=== PATIENT | female | born 1985 | race Two or more races ===

== ENCOUNTER 2018-01-02 10:29 | Emergency (ER) | payer OTHER ==
[~2018-01-02] VITALS: Ht 175.3 cm; Wt 88.5 kg
[~2018-01-02 10:29] MED LIST: ADVAIR 100-501 EACH; LOTREL 5-20 MG1 CAP; NEURONTIN300 MG; SYNTHROID50 MCG
[2018-01-02] MEDS ORDERED: AVAPRO150 MG (10:40)
== END 2018-01-02 11:31 | disposition home or self-care (01) ==
LOC: ER 10:29
DX: M62.838 Other muscle spasm (principal); M54.89 Other dorsalgia

== ENCOUNTER 2023-03-11 09:10 | Day surgery (SDC) | payer OTHER ==
[~2023-03-11 09:10] MED LIST changes: +AVAPRO150 MG; +LABETALOL HCL100 MG PO
== END 2023-03-11 17:20 | disposition home or self-care (01) ==
LOC: CIR.AMB 09:10
PROVIDERS: ATTEND Student in an Organized Health Care Education/Training Program
DX: O02.1 Missed abortion (principal); O72.2 Delayed and secondary postpartum hemorrhage; Z20.822 Contact with and (suspected) exposure to COVID-19

== ENCOUNTER 2023-10-09 11:42 | Emergency (ER) | payer OTHER ==
[~2023-10-09] VITALS: Ht 175.3 cm; Wt 94.3 kg
[2023-10-09] MEDS ORDERED: hydrOXYzine PAMOATE 50 MG CAPSULE PO STA (15:05)
== END 2023-10-09 15:38 | disposition home or self-care (01) ==
LOC: ER 11:42
DX: F41.9 Anxiety disorder, unspecified (principal); I10 Essential (primary) hypertension

== ENCOUNTER → 2024-04-25 14:45 | Outpatient (CLI) | payer OTHER | END | disposition home or self-care (01) | LOC: PRENATAL 14:45 | PROVIDERS: ATTEND Obstetrics & Gynecology Maternal & Fetal Medicine | DX: O09.529 Supervision of elderly multigravida, unspecified trimester (principal); O10.019 Pre-existing essential hypertension complicating pregnancy, unspecified trimester; Z36.82 Encounter for antenatal screening for nuchal translucency; Z36.0 Encounter for antenatal screening for chromosomal anomalies; Z3A.12 12 weeks gestation of pregnancy ==

== ENCOUNTER → 2024-06-19 08:10 | Outpatient (CLI) | payer OTHER | END | disposition home or self-care (01) | LOC: PRENATAL 08:10 | PROVIDERS: ATTEND Obstetrics & Gynecology Maternal & Fetal Medicine | DX: O44.00 Complete placenta previa NOS or without hemorrhage, unspecified trimester (principal); O09.529 Supervision of elderly multigravida, unspecified trimester; O10.019 Pre-existing essential hypertension complicating pregnancy, unspecified trimester; Z14.8 Genetic carrier of other disease; Z3A.20 20 weeks gestation of pregnancy ==

== ENCOUNTER → 2024-08-16 13:28 | Outpatient (CLI) | payer OTHER | END | disposition home or self-care (01) | LOC: PRENATAL 13:28 | PROVIDERS: ATTEND Obstetrics & Gynecology Maternal & Fetal Medicine | DX: O26.849 Uterine size-date discrepancy, unspecified trimester (principal); O09.529 Supervision of elderly multigravida, unspecified trimester; O10.019 Pre-existing essential hypertension complicating pregnancy, unspecified trimester; Z14.8 Genetic carrier of other disease; Z3A.29 29 weeks gestation of pregnancy ==

== ENCOUNTER → 2024-09-26 10:09 | Outpatient (CLI) | payer OTHER | END | disposition home or self-care (01) | LOC: PRENATAL 10:09 | PROVIDERS: ATTEND Obstetrics & Gynecology Maternal & Fetal Medicine | DX: O26.849 Uterine size-date discrepancy, unspecified trimester (principal); O36.8199 Decreased fetal movements, unspecified trimester, other fetus; O09.529 Supervision of elderly multigravida, unspecified trimester; O10.019 Pre-existing essential hypertension complicating pregnancy, unspecified trimester; Z14.8 Genetic carrier of other disease; Z3A.35 35 weeks gestation of pregnancy ==

== ENCOUNTER 2024-10-31 06:40 | Inpatient (IN) | payer OTHER ==
[~2024-10-31] VITALS: Ht 175.3 cm; Wt 3.6 kg
[2024-10-31 07:04] VITALS: BP 137/78
[2024-10-31] MEDS ORDERED: LABETALOL HCL200 MG (07:32)
[2024-10-31] MEDS ORDERED: ECOTRIN81 MG PO (07:33)
[2024-10-31] MEDS ORDERED: PRENATAL + DHA1 EAC1 PO (07:34)
[2024-10-31 07:35] VITALS: BP 137/78
[2024-10-31 08:41] LABS: HEMATOCRIT 34.5 % (36.0-45.00); HEMOGLOBIN 11.7 g/dL (12.0-15.00); MEAN CELL VOLUME 92.5 fL (80.00-100.00); MEAN CORPUSCULAR HEMOGLOBIN 31.3 pg (27.00-32.0); MEAN CORPUSCULAR HGB CONC 33.8 g/dl (32.0-36.0); PLATELET COUNT 182 K/uL (150-450); RED BLOOD COUNT 3.73 M/uL (4.00-6.00); RED CELL DISTRIBUTION WIDTH 14.1 % (11.5-14.5)
[2024-10-31 09:01] LABS: URINE APPEARANCE Clear; URINE BILIRRUBIN Negative (NEGATIVE); URINE BLOOD Small; URINE COLOR Dark Yellow; URINE GLUCOSE Negative (NEGATIVE); URINE KETONE Trace (NEGATIVE); URINE LEUKOCYTE Negative; URINE NITRATE Negative; URINE PROTEIN Trace (NEGATIVE)
[2024-10-31 09:06] LABS: URINE BACTERIA 316.9 uL (0.0-1933); URINE EPITHELIAL CELLS 26.2 uL (0.0-38.8); URINE RBC 63.6 uL (0.0-20.8)
[2024-10-31 09:13] LABS: INR 1.02; PARTIAL THROMBOPLASTIN TIME 32.3 SECONDS (22.0-34.0); PROTHROMBIN TIME 11.1 SECONDS (9.0-11.5)
[2024-10-31 09:17] LABS: ALBUMIN 2.8 gm/dL (3.4-5.0); BILIRUBIN TOTAL 0.64 mg/dL (0.3-1.2); CALCIUM 8.7 mg/dL (8.5-10.1); CREATININE SERUM 0.54 mg/dL (0.55-1.02); GFR 125.68; GLOBULINA 3.5 G/DL (2.4-3.5); POTASSIUM 3.78 mEq/L (3.5-5.1); TOTAL PROTEIN 6.3 gm/dL (6.4-8.2)
[2024-10-31] MEDS ORDERED: MISOPROSTOL 25 MCG/4 ML GEL.W.APPL VAG ONE ×3 (10:15→20:30)
[2024-10-31 15:19] VITALS: BP 155/72
[2024-10-31] MEDS ORDERED: MISOPROSTOL 25 MCG/4 ML GEL.W.APPL ONE (15:25)
[2024-10-31 19:14] VITALS: BP 130/66
[2024-10-31 23:40] VITALS: BP 134/70
[2024-11-01] MEDS ORDERED: MISOPROSTOL 25 MCG/4 ML GEL.W.APPL VAG ONE (02:30)
[2024-11-01 03:18] VITALS: BP 128/67
[2024-11-01] MEDS ORDERED: CEFAZOLIN SODIUM 1,000 MG VIAL IV SCH (07:00)
[2024-11-01 07:47] VITALS: BP 134/66
[2024-11-01] MEDS ORDERED: LABETALOL HCL 200 MG TABLET PO SCH ×2 (09:00→17:00)
[2024-11-01 11:21] VITALS: BP 127/65
[2024-11-01] MEDS ORDERED: ERYTHROMYCIN BASE OPHT 1GM EACH TUBE OP ONE ×2 (14:07→15:18)
[2024-11-01] MEDS ORDERED: OXYTOCIN 10 UNITS/ML VIAL ONE ×3 (14:07→21:55)
[2024-11-01] MEDS ORDERED: KETOROLAC TROMETHAMINE 30 MG VIAL IV NR (15:45)
[2024-11-01] MEDS ORDERED: MORPHINE SULFATE 4 MG/ML CARTRIDGE IV PRN (15:45)
[2024-11-01] MEDS ORDERED: RINGERS SOLUTION,LACTATED 1,000 ML IV SCH (15:45)
[2024-11-01] MEDS ORDERED: CHLORHEXIDINE GLUCONATE 120 ML BOTTLE TOP NR (15:45)
[2024-11-01] MEDS ORDERED: ONDANSETRON HCL 2 MG/ML VIAL IV PRN (15:45)
[2024-11-01] MEDS ORDERED: OXYTOCIN 1,000 ML IV SCH (15:45)
[2024-11-01] MEDS ORDERED: ACETAMINOPHEN 325 MG TABLET PO SCH (18:00)
[2024-11-01] MEDS ORDERED: KETOROLAC TROMETHAMINE 30 MG VIAL IV SCH (18:00)
[2024-11-01] MEDS ORDERED: SIMETHICONE 125 MG CAPSULE PO SCH (18:00)
[2024-11-01] MEDS ORDERED: SIMETHICONE 125 MG CAPSULE PO ONE ×2 (18:54→21:50)
[2024-11-01] MEDS ORDERED: ACETAMINOPHEN 325 MG TABLET PO ONE (18:55)
[2024-11-01] MEDS ORDERED: KETOROLAC TROMETHAMINE 30 MG VIAL ONE (18:55)
[2024-11-01 22:36] VITALS: BP 110/57
[2024-11-02 05:00] VITALS: BP 128/82
[2024-11-02] MEDS ORDERED: OxyCODONE HCL 5 MG TABLET (ROXICODONE) PO PRN (06:00)
[2024-11-02 06:49] LABS: HEMATOCRIT 35.7 % (36.0-45.00); MEAN CELL VOLUME 92.8 fL (80.00-100.00); MEAN CORPUSCULAR HEMOGLOBIN 31.2 pg (27.00-32.0); MEAN CORPUSCULAR HGB CONC 33.6 g/dl (32.0-36.0); PLATELET COUNT 168 K/uL (150-450); RED BLOOD COUNT 3.85 M/uL (4.00-6.00); RED CELL DISTRIBUTION WIDTH 13.7 % (11.5-14.5)
[2024-11-02 08:10] VITALS: BP 134/65
[2024-11-02] MEDS ORDERED: PNV,CALCIUM 72/IRON/FOLIC ACID 1 TAB TABLET PO SCH (09:00)
[2024-11-02] MEDS ORDERED: IBUprofen 400 MG TABLET PO SCH (09:00)
[2024-11-02 16:48] VITALS: BP 150/90
[2024-11-03] VITALS: BP 131/74
[2024-11-03 08:35] VITALS: BP 149/77
[2024-11-03 16:49] VITALS: BP 124/75
[2024-11-03] MEDS ORDERED: IBU800 MG PO (17:04)
[2024-11-03] MEDS ORDERED: SIMETHICONE125 M1 PO (17:05)
[2024-11-03] MEDS ORDERED: COLACE100 MG PO (17:06)
== END 2024-11-03 18:27 | disposition home or self-care (01) | DRG 787 ==
LOC: LDR 06:40 → O/R 11-01 16:12 → OB/GYN 11-01 21:01
PROVIDERS: Obstetrics & Gynecology; ADMIT Student in an Organized Health Care Education/Training Program; ATTEND Student in an Organized Health Care Education/Training Program
PROC: 3E0P7VZ Introduction of Hormone into Female Reproductive, Via Natural or Artificial Opening (ICD-10-PCS; 2024-10-31)
PROC: 4A1HXCZ Monitoring of Products of Conception, Cardiac Rate, External Approach (ICD-10-PCS; 2024-10-31)
PROC: 3E033VJ Introduction of Other Hormone into Peripheral Vein, Percutaneous Approach (ICD-10-PCS; 2024-11-01)
PROC: 10D00Z1 Extraction of Products of Conception, Low, Open Approach (ICD-10-PCS; principal; 2024-11-01 16:00)
DX: O61.0 Failed medical induction of labor (principal); O10.02 Pre-existing essential hypertension complicating childbirth; Z3A.39 39 weeks gestation of pregnancy; Z37.0 Single live birth